=== PATIENT | female | born 1955 | race African-American/Black ===

== ENCOUNTER 2017-03-26 11:43 | Inpatient (IN) | payer OTHER ==
[2017-03-26] VITALS (7 sets, daily range): BP systolic 145–202; BP diastolic 69–109
[~2017-03-26] VITALS: Ht 157.5 cm; Wt 103.1 kg
--- NOTE | ~2017-03-26 | HC ---
[facility] [place] [address] CONSULTATION Name: ANDREA SWAIN Room #: 213-P ADM IN M.R.#: [id number] Admission: 03/26/17 Attend Phys: Demarcus Zee DO Discharge: Date of : 55 Report #: [id number] THIS REPORT FOR: //name// CC: Nishant Zee HISTORY OF PRESENT ILLNESS: The patient is a 61-year-old female, , who presents with complaints of dizziness, intermittent headache and sinus congestion. It sounds more of a positional issue, associated with some nausea and vomiting initially and this has subsided to some extent, but still having intermittent discomfort and headache. CT of the head is negative. This sounds somewhat suspicious for an acute labyrinthitis with the initial nausea and vomiting issue, but also now associated with significant and refractory hypertension. She only takes metformin as her only medication. She had been followed by Dr. Ilya Estevez for a number of years, but due to insurance change can no longer see him. She has some borderline LVH and sinus rhythm on her EKG. She does not have any documented coronary artery disease and no significant risk factors, with the exception of the diabetes. MEDICATIONS: Only metformin. ALLERGIES: No known drug allergies. PAST MEDICAL HISTORY: Positive for apparently some borderline hypertension, not previously treated diabetes and some reflux issues. SOCIAL HISTORY: She recently retired. No tobacco or alcohol. She is . She has no children. She lives independently. REVIEW OF SYSTEMS: Negative, except for stated above. Has had intermittent headaches, but not to this degree prior. LABORATORY DATA: Sodium 141, potassium 3.4. Troponin 0.12, this is equivocal. Glucose 260, creatinine 1.0. H and H are 13 and 40, white count [address] platelets 167,000. CT of the head, no acute process is noted. PHYSICAL EXAMINATION: VITAL SIGNS: Blood pressure 160/74, pulse is 90s. HEENT: Eyes reveal no xanthelasmas. Pharynx is clear. NECK: Shows preserved upstrokes, without JVD or bruits. LUNGS: Clear. CARDIAC EXAMINATION: Regular rate and rhythm, no S4, S1, S2. ABDOMEN: Soft. No HSM or abdominal bruit. No flank bruits. EXTREMITIES: Reveal trace nonpitting edema. NEUROLOGIC: Nonfocal. SKIN: Warm and dry, without xanthoma or ulcer. MUSCULOSKELETAL: Generalized arthritic changes. [facility] [address] [place] [address] CONSULTATION Name: MARKIE ANDREA HINTON Room #: 213-P ADM IN M.R.#: [id number] Admission: 03/26/17 Attend Phys: Demarcus Zee DO Discharge: Date of : 55 Report #: [id number] ASSESSMENT: 1. Severe vertigo associated with nausea and vomiting. 2. Refractory hypertension. 3. Diabetes. 4. Suspected hyperlipidemia. 5. History of reflux. RECOMMENDATIONS AND PLAN: Carotid Doppler preliminary looks to be okay. A CT scan was noted, see echo of the heart in the morning. I suspect it will be LVH. We will utilize Zofran here and try to get her off Cardene drip and all oral medications. Currently has IV , which we will use q. 6 hours. We will add 10 mg of amlodipine and 10 mg of Bystolic and would also like a lipid profile in the morning. Hemoglobin A1c would be helpful here, that is currently pending. Her TSH was normal. We will continue obviously sodium restriction here. Troponin is not diagnostic at 0.12, I did not perceive this to be ischemic unless I would find a wall motion abnormality or some other abnormality, but perhaps would consider outpatient stress testing if we are able to control blood pressure. We will continue to follow with you and try to treat it. Obviously, this may be an acute labyrinthitis on top of this hypertension or the 2 may be related. Thank you for allowing me to assist in the care of this patient. By: [id number] Kee Major MD, FACC /nt
--- NOTE | ~2017-03-26 | 2DMMODE ---
[facility] [address] [employer] [place] [address] 2 D/M-MODE ECHOCARDIOGRAM Name: ANDREA SWAIN Room #: 213-P [facility] IN M.R.#: [id number] Admission: 03/26/17 Attend Phys: Demarcus Zee, Discharge: Date of : 55 Date of Service: 03/27/17 1335 Report #: [id number] THIS REPORT FOR: //name// APPROVED REPORT Study performed: 03/26/2017 15:26:55 EXAM: Comprehensive 2D, Doppler, and color-flow Echocardiogram Patient Location: Bedside Room #: 213 Other Information Study Quality: Technically Difficult Indications Diabetes Elevated Troponin Hypertension/HDD 2D Dimensions RVDd: 30.02 mm LVEF(%): 61.75 (>50%) IVSd: 14.69 (7-11mm) LVOT Diam: 16.30 (18-24mm) LVDd: 35.43 mm PWd: 14.71 (7-11mm) Ascending Ao: 23.83 (22-36mm) LVDs: 23.94 (25-40mm) Aortic Root: 26.74 mm IVC: 19.00 mm Donald's LVEF: 61.75 % Volumes Left Atrial Volume (Systole) Single Plane 4CH: 27.24 mL Single Plane 2CH: 49.71 mL LA ESV Index: 19.00 mL/m2 Aortic Valve AoV Peak Hermilo.: 1.77 m/s AO Peak Gr.: 12.51 mmHg LVOT Max P.71 mmHg LVOT Max V: 1.56 m/s CARLOS Vmax: 1.84 cm2 Mitral Valve E/A Ratio: 0.6 MV Decel. Time: 183.70 ms MV E Max Hermilo.: 0.57 m/s MV A Hermilo.: 1.00 m/s [facility] [place] [address] 2 D/M-MODE ECHOCARDIOGRAM Name: ANDREA SWAIN Room #: 213-P [facility] IN .R.#: [id number] Admission: 03/26/17 Attend Phys: Demarcus Zee, Discharge: Date of : 55 Date of Service: 03/27/17 1335 Report #: [id number] MV PHT: 53.27 ms IVRT: 96.89 ms Pulmonary Valve PV Peak Hermilo.: 0.91 m/s PV Peak Gr.: 3.32 mmHg Pulmonary Vein P Vein S: 0.65 m/s P Vein A: 0.40 m/s P Vein D: 0.39 m/s P Vein A Dur.: 138.4 msec P Vein S/D Ratio: 1.67 Tricuspid Valve TR Peak Hermilo.: 2.78 m/s RAP Estimate: 5.00 mmHg TR Peak Gr.: 30.81 mmHg Left Ventricle The left ventricle is normal size. Moderate concentric left ventricular hypertrophy. The left ventricular systolic function is normal. The left ventricular ejection fraction is within the normal range. LVEF is 60%. Mild diastolic dysfunction is present (impaired relaxation pattern). Right Ventricle The right ventricle is normal size. The right ventricular systolic function is normal. Atria The left atrium size is normal. The right atrium size is normal. Aortic Valve The aortic valve is normal in structure. No aortic regurgitation is present. There is no aortic valvular stenosis. Mitral Valve The mitral valve is normal in structure. There is no mitral valve regurgitation noted. No evidence of mitral valve stenosis. Tricuspid Valve The tricuspid valve is normal in structure. Trace tricuspid regurgitation. Pulmonic Valve Pulmonic valve is not well visualized. Trace pulmonic regurgitation. [address] [address] 2 D/M-MODE ECHOCARDIOGRAM Name: ANDREA SWAIN Room #: 213-P [facility] IN [facility]#: [id number] Admission: 03/26/17 Attend Phys: Demarcus Zee, Discharge: Date of : 55 Date of Service: 03/27/17 1335 Report #: [id number] Great Vessels The aortic root is normal in size. IVC is normal in size and collapses >50% with inspiration. Pericardium There is no pericardial effusion. There is no pleural effusion. <Conclusion> The left ventricle is normal size. Moderate concentric left ventricular hypertrophy. LVEF is 60%. The aortic valve is normal in structure. The mitral valve is normal in structure. The tricuspid valve is normal in structure. Trace tricuspid regurgitation. Pulmonic valve is not well visualized. Trace pulmonic regurgitation. <ELECTRONICALLY SIGNED> By: Jaspreet Caal MD 03/27/17 1335 1335 1335 Jaspreet Caal MD /INF
--- NOTE | ~2017-03-26 | EKG ---
[address] [address] ELECTROCARDIOGRAM REPORT Name: ANDREA SWAIN Room #: 213-P ADM IN M.R.#: [id number] Admission: 03/26/17 Attend Phys: Demarcus Zee DO Discharge: Date of : 55 Report #: [id number] THIS REPORT FOR: //name// [facility] ED Test Date: 2017-03-26 Test Time: 12:07:37 Pat Name: ANDREA HARP Department: Room: 213 Gender: F Travel Guide: MILTON Campa : 1955 Requested By: Paz Oliveros Order Number: [id number] MD: Fly Rudolph Measurements Intervals [place] Rate: 94 P: 47 VA: 175 QRS: -16 QRSD: 82 T: 55 QT: 353 QTc: 442 Interpretive Statements Sinus rhythm Atrial premature complex Probable left atrial enlargement Left ventricular hypertrophy Compared to ECG 10/14/2005 11:18:07 Atrial premature complex(es) now present Left ventricular hypertrophy now present Electronically Signed On 03-27-2017 12:49:18 CDT by Fly Rudolph [email or web address] <ELECTRONICALLY SIGNED> By: Fly Rudolph MD 03/27/17 1249 1207 1207 Fly Rudolph MD /EPI
[2017-03-26] MEDS ORDERED: METFORMIN HCL500 MG PO (12:07)
[2017-03-26 13:12] LABS: ABSOLUTE NEUTROPHILS 6.8 thou/uL (1.4-8.2); BASOPHILS 1.1 % (0.0-2.0); EOSINOPHILS 3.2 % (0.0-3.0); HEMATOCRIT 40.3 % (37.0-47.0); HEMOGLOBIN 13.2 gm/dL (12.0-15.0); MCH 26.1 pg (26.0-34.0); MCHC 32.8 g/dL (28.0-37.0); MCV 79.4 fL (80.0-100.0); MONOCYTES 6.8 % (1.0-8.0); POLYS 72.9 % (36.0-66.0); RBC 5.08 mil/uL (4.20-5.00); RDW 15.1 % (10.5-14.5); WBC 9.3 thou/uL (4.0-11.0)
[2017-03-26 13:14] LABS: MANUAL DIFF NO
[2017-03-26 13:31] LABS: CALCIUM 9.5 mg/dL (8.5-10.1); POTASSIUM 3.4 mmol/L (3.5-5.1)
[2017-03-26 13:39] LABS: TROPONIN-I 0.12 ng/mL (<0.04-0.07)
[2017-03-26 13:42] LABS: PLATELET COUNT 167 thou/uL (150-400)
[2017-03-26 13:44] LABS: LARGE PLATELETS RARE
[2017-03-26 15:27] LABS: CHOLESTEROL 154 mg/dL (<200); HDL CHOLESTEROL 58 mg/dL (>40); LDL CHOLESTEROL 74 mg/dL (<100); MAGNESIUM 1.9 mg/dL (1.8-2.4); TC:HDL 2.7 Ratio (Not establshd); TRIGLYCERIDE 112 mg/dL (<150); VLDL 22 mg/dL (<40)
[2017-03-27 04:13] LABS: GLYCOHEMOGLOBIN (HGB A1C) 8.7 % (4.8-5.6)
[2017-03-27 04:32] VITALS: BP 146/79
[2017-03-27 06:45] LABS: ABSOLUTE NEUTROPHILS 8.3 thou/uL (1.4-8.2); BASOPHILS 0.8 % (0.0-2.0); EOSINOPHILS 0.8 % (0.0-3.0); HEMATOCRIT 36.7 % (37.0-47.0); MCH 26.1 pg (26.0-34.0); MCHC 32.6 g/dL (28.0-37.0); MCV 80.1 fL (80.0-100.0); MONOCYTES 7.2 % (1.0-8.0); PLATELET COUNT 162 thou/uL (150-400); POLYS 78.2 % (36.0-66.0); RBC 4.59 mil/uL (4.20-5.00); RDW 14.8 % (10.5-14.5); WBC 10.6 thou/uL (4.0-11.0)
[2017-03-27 06:47] LABS: MANUAL DIFF NO
[2017-03-27 06:59] LABS: CALCIUM 9.1 mg/dL (8.5-10.1)
[2017-03-27 07:05] LABS: CHOLESTEROL 143 mg/dL (<200); HDL CHOLESTEROL 50 mg/dL (>40); LDL CHOLESTEROL 65 mg/dL (<100); TC:HDL 2.9 Ratio (Not establshd); TRIGLYCERIDE 142 mg/dL (<150); VLDL 28 mg/dL (<40)
[2017-03-27 11:32] VITALS: BP 156/68
[2017-03-27 13:17] LABS: FOLIC ACID 18.4 ng/mL (8.6-58.9)
[2017-03-27] MEDS ORDERED: ASPIR 8181 MG PO (14:19)
[2017-03-27] MEDS ORDERED: AMLODIPINE BESY10 MG PO (14:19)
[2017-03-27] MEDS ORDERED: ANTIVERT25 MG PO (14:19)
[2017-03-27] MEDS ORDERED: COZAAR 50 MG TA50 M1 PO (14:19)
[2017-03-27] MEDS ORDERED: BYSTOLIC 5 MG5 M1 PO (14:19)
[2017-03-27 14:34] VITALS: BP 156/68
[2017-03-27 16:52] VITALS: BP 155/81
[2017-03-27 19:47] VITALS: BP 142/73
[2017-03-28 04:08] VITALS: BP 134/63
[2017-03-28 07:29] VITALS: BP 142/68
[2017-03-28 11:48] VITALS: BP 183/87
[2017-03-28 12:28] VITALS: BP 151/74
[2017-03-28 15:01] VITALS: BP 156/68
[2017-03-28 15:13] VITALS: BP 156/68
[2017-03-30 22:10] LABS: LYME ANTIBODY SCREEN* <0.91 ISR (0.00-0.90)
== END 2017-03-28 18:00 | disposition short-term general hospital (02) | DRG 305 ==
LOC: ER 11:43 → EROBS 13:51 → 2N 13:51
PROVIDERS: Emergency Medicine; Family Medicine; Internal Medicine Cardiovascular Disease; Psychiatry & Neurology Neurology
DX: I16.0 Hypertensive urgency (principal); I10 Essential (primary) hypertension; R19.7 Diarrhea, unspecified; K21.9 Gastro-esophageal reflux disease without esophagitis; Z79.899 Other long term (current) drug therapy; Z79.82 Long term (current) use of aspirin; Z91.19 Patient's noncompliance with other medical treatment and regimen
CPT/HCPCS: 10081